=== PATIENT | male | born 1990 | race Caucasian/White ===

== ENCOUNTER 2023-03-20 00:48 | Emergency (ER) | payer OTHER ==
[~2023-03-20] VITALS: Ht 172.7 cm; Wt 69.0 kg
[2023-03-20 01:10] VITALS: BP 111/77; PULSE 88; RESP 18; TEMP 98.3; O2SAT 99
[2023-03-20] MEDS ORDERED: DOLU50TA MT (01:17)
[2023-03-20] MEDS ORDERED: EMTR1TAB11 MT (01:17)
== END 2023-03-20 01:30 | disposition home or self-care (01) ==
LOC: ER 00:48
DX: Z20.2 Contact with and (suspected) exposure to infections with a predominantly sexual mode of transmission (principal)
CPT/HCPCS: 99281; 99283

== ENCOUNTER 2023-08-23 05:14 | Emergency (ER) | payer MEDICAID, OTHER ==
[~2023-08-23] VITALS: Ht 172.7 cm; Wt 66.0 kg
[~2023-08-23 05:14] MED LIST: DOLU50TA MT; EMTR1TAB11 MT
[2023-08-23 05:43] VITALS: O2SAT 99
[2023-08-23] MEDS: FAMOTIDINE 20MG TABLET PO ONE (07:45)
[2023-08-23 08:00] VITALS: BP 110/77; PULSE 68; RESP 17; TEMP 98
[2023-08-23] MEDS ORDERED: FAMO-135 MT (08:10)
== END 2023-08-23 08:15 | disposition home or self-care (01) ==
LOC: ER 06:06
DX: K21.9 Gastro-esophageal reflux disease without esophagitis (principal); Z98.890 Other specified postprocedural states
CPT/HCPCS: 71045; 99283

== ENCOUNTER 2023-10-15 00:05 | Emergency (ER) | payer MEDICAID ==
[~2023-10-15] VITALS: Ht 172.7 cm; Wt 63.0 kg
[~2023-10-15 00:05] MED LIST changes: +FAMO-135 MT
[2023-10-15 00:31] VITALS: O2SAT 96
[2023-10-15] MEDS ORDERED: BENZ200C52 MT (02:49)
[2023-10-15 03:25] VITALS: BP 96/69; PULSE 57; RESP 18; TEMP 97.5
== END 2023-10-15 03:27 | disposition home or self-care (01) ==
LOC: ER 01:03
DX: R05.9 Cough, unspecified (principal)
CPT/HCPCS: 71045; 99283